=== PATIENT | male | born 1970 | race Hispanic/Latino ===

== ENCOUNTER 2016-10-31 03:31 | Emergency (ER) | payer OTHER ==
[2016-10-31 03:39] VITALS: BMI 25.7
--- NOTE | 2016-10-31 04:44 | ED PDOC ---
Arrival/HPI - General Chief Complaint: Alcohol Ingestion Time Seen by Provider: 10/31/16 04:41 Historian: Patient - History of Present Illness Narrative History of Present Illness (Text): 10/31/16 04:41 Diana Koenig is a 46 year old male who presents to the emergency department via EMS for public intoxication. Patient admits to drinking alcohol throughout the day. Denies any somatic or psychological complaints. ROS limited due to intoxication. Symptom Onset: Gradual Severity Level: Mild Context: Street Past Medical History - Provider Review Nursing Documentation Reviewed: Yes - Tetanus Immunization Tetanus Immunization: Unknown - Past Medical History Past Medical History: No Previous - Cardiac Hx Cardiac Disorders: No Hx Hypertension: No - Pulmonary Hx Respiratory Disorders: Yes Hx Asthma: Yes - Neurological Hx Neurological Disorder: No HX Cerebrovascular Accident: No Hx Seizures: No - HEENT Hx HEENT Disorder: No - Renal Hx Renal Disorder: No - Endocrine/Metabolic Hx Endocrine Disorders: No - Hematological/Oncological Hx Blood Disorders: Yes Hx Cancer: No Hx Hepatitis C: Yes - Integumentary Hx Dermatological Disorder: No - Musculoskeletal/Rheumatological Hx Musculoskeletal Disorders: No - Gastrointestinal Hx Gastrointestinal Disorders: No - Genitourinary/Gynecological Hx Genitourinary Disorders: No Hx Sexually Transmitted Diseases: No - Psychiatric Hx Psychophysiologic Disorder: No Hx Substance Use: Yes (heroin) - Past Surgical History Past Surgical History: No Previous - Anesthesia Hx Anesthesia: No - Suicidal Assessment Feels Threatened In Home Enviroment: No Family/Social History - Physician Review Nursing Documentation Reviewed: Yes Family/Social History: No Known Family HX Smoking Status: Heavy Smoker > 10 Cigarettes Daily Hx Alcohol Use: Yes Hx Substance Use: Yes (heroin) Hx Substance Use Treatment: No Allergies/Home Meds Allergies/Adverse Reactions: Allergies No Known Allergies Allergy (Verified 01/31/16 16:14) Review of Systems - Review of Systems Systems not reviewed;Unavailable: Intoxicated Physical Exam - Physical Exam Narrative Physical Exam (Text): Constitutional: No acute distress. Intoxicated Head: Normocephalic. Atraumatic. Eyes: PERRL. ENT: Moist mucous membranes. Neck: Supple. Cardiovascular: Regular rate. Chest: No tenderness. Respiratory: Clear to auscultation bilaterally. GI: Soft. Nontender. Nondistended. Back: No CVA tenderness. Musculoskeletal: No tenderness or swelling of extremities. Skin: No rash. Neurologic: Alert, no focal deficit. Vital Signs Reviewed: Yes Vital Signs Temp Pulse Resp BP Pulse Ox 10/31/16 05:48 98.1 F 65 16 146/86 97 Temperature: Afebrile Blood Pressure: Normal Pulse: Regular Respiratory Rate: Normal Appearance: Positive for: Well-Appearing Pain Distress: None Mental Status: Positive for: other (Alert ) Medical Decision Making ED Course and Treatment: 10/31/16 04:44 Impression: A 46 year old male who presents to the emergency department via EMS for public intoxication. Plan: -- Reassess and disposition Progress Notes: 10/31/16 05:59 Patient with steady gait. - Scribe Statement The provider has reviewed the documentation as recorded by the Nena Lopez Provider Attestation: All medical record entries made by the Nena were at my direction and personally dictated by me. I have reviewed the chart and agree that the record accurately reflects my personal performance of the history, physical exam, medical decision making, and the department course for this patient. I have also personally directed, reviewed, and agree with the discharge instructions and disposition. Disposition/Present on Arrival - Present on Arrival Any Indicators Present on Arrival: No History of DVT/PE: No History of Uncontrolled Diabetes: No Urinary Catheter: No History of Decub. Ulcer: No History Surgical Site Infection Following: None - Disposition Have Diagnosis and Disposition been Completed?: Yes Diagnosis: Alcohol intoxication Disposition: HOME/ ROUTINE Disposition Time: 05:59 Patient Plan: Discharge Condition: STABLE Discharge Instructions (ExitCare): Alcohol Intoxication (ED)
[2016-10-31 05:50] VITALS: BP 146/86; PULSE 65; RESP 16; TEMP 98.1; O2SAT 97
== END 2016-10-31 06:04 | disposition home or self-care (01) ==
LOC: ED 03:31
DX: F10.129 Alcohol abuse with intoxication, unspecified (principal)

== ENCOUNTER 2017-01-01 03:11 | Inpatient (IN) | payer OTHER ==
[2017-01-01] MEDS ORDERED: Albuterol-Ipratrop 3 mg / 0.5 (3 ml) UD IH STA ×2 (03:34→04:24)
--- NOTE | 2017-01-01 03:38 | ED PDOC ---
Arrival/HPI - General Chief Complaint: Shortness Of Breath Time Seen by Provider: 01/01/17 03:27 Historian: Patient - History of Present Illness Narrative History of Present Illness (Text): 01/01/17 03:32 Diana Koenig is a 46 year old male, whose past medical history includes asthma, presents to the Emergency department complaining of shortness of breath. Patient states he ran out of his nebulizer treatments. Patient also notes he has been feeling dizzy and diaphoretic tonight. He reports a history of tobacco use and heroin use. Patient denies any chest pain, shortness of breath, headache, fever, chills, cough, nausea, vomiting, diarrhea, abdominal pain, or any other complaints. Time/Duration: Other (tonight) Symptom Onset: Gradual Symptom Course: Unchanged Modifying Factors (Text): None Associated Symptoms (Text): None Past Medical History - Provider Review Nursing Documentation Reviewed: Yes - Tetanus Immunization Tetanus Immunization: Unknown - Past Medical History Past Medical History: No Previous - Cardiac Hx Cardiac Disorders: No Hx Hypertension: No - Pulmonary Hx Respiratory Disorders: Yes Hx Asthma: Yes - Neurological Hx Neurological Disorder: No HX Cerebrovascular Accident: No Hx Seizures: No - HEENT Hx HEENT Disorder: No - Renal Hx Renal Disorder: No - Endocrine/Metabolic Hx Endocrine Disorders: No - Hematological/Oncological Hx Blood Disorders: Yes Hx Cancer: No Hx Hepatitis C: Yes - Integumentary Hx Dermatological Disorder: No - Musculoskeletal/Rheumatological Hx Musculoskeletal Disorders: No - Gastrointestinal Hx Gastrointestinal Disorders: No - Genitourinary/Gynecological Hx Genitourinary Disorders: No Hx Sexually Transmitted Diseases: No - Psychiatric Hx Psychophysiologic Disorder: No Hx Substance Use: Yes (heroin) - Past Surgical History Past Surgical History: No Previous - Anesthesia Hx Anesthesia: No - Suicidal Assessment Feels Threatened In Home Enviroment: No Family/Social History - Physician Review Nursing Documentation Reviewed: Yes Family/Social History: Unknown Family HX Smoking Status: Heavy Smoker > 10 Cigarettes Daily Hx Alcohol Use: Yes Frequency of alcohol use: Daily Hx Substance Use: Yes (heroin) Hx Substance Use Treatment: No Allergies/Home Meds Allergies/Adverse Reactions: Allergies No Known Allergies Allergy (Verified 01/01/17 12:08) Home Medications: Home Meds Medication Instructions Recorded Confirmed Albuterol HFA [Ventolin HFA 90 2 puff IH [id number] PRN 01/01/17 01/01/17 mcg/actuation (8 g)] Buprenorphine HCl/Naloxone HCl 2 - 8 mg SL BID 01/01/17 01/01/17 [Suboxone 8 mg-2 mg Sl Film] Mometasone [Asmanex Twisthaler 220 220 mcg IH BID 01/01/17 01/01/17 MCG] Review of Systems - Physician Review All systems were reviewed & negative as marked: Yes - Review of Systems Constitutional: Normal. absent: Fevers Eyes: Normal ENT: Normal. absent: Rhinorrhea Respiratory: SOB. absent: Cough Cardiovascular: Normal. absent: Chest Pain Gastrointestinal: Normal. absent: Diarrhea Genitourinary Male: Normal. absent: Frequency Musculoskeletal: Normal. absent: Neck Pain Skin: Normal Neurological: Dizziness. absent: Headache Endocrine: Diaphoresis Hemo/Lymphatic: Normal Psychiatric: Normal. absent: Depression Physical Exam Vital Signs Reviewed: Yes Vital Signs Temp Pulse Resp BP Pulse Ox 01/01/17 08:40 65 18 113/66 97 01/01/17 07:42 98.2 F 66 16 110/79 98 01/01/17 06:30 97.7 F 76 18 117/70 98 01/01/17 03:50 20 01/01/17 03:19 98.8 F 113 H 20 102/66 90 L Temperature: Afebrile Blood Pressure: Normal Pulse: Tachycardic Respiratory Rate: Normal Appearance: Positive for: Well-Appearing, Non-Toxic, Comfortable Pain Distress: None Mental Status: Positive for: Alert and Oriented X 3 - Systems Exam Head: Present: Atraumatic, Normocephalic Pupils: Present: PERRL Extroacular Muscles: Present: EOMI Conjunctiva: Present: Normal Mouth: Present: Moist Mucous Membranes Neck: Present: Normal Range of Motion Respiratory/Chest: Present: Wheezes (wheezing bilaterally) Cardiovascular: Present: Regular Rate and Rhythm, Normal S1, S2. No: Murmurs Abdomen: Present: Normal Bowel Sounds. No: Tenderness, Distention, Peritoneal Signs Upper Extremity: Present: Normal Inspection. No: Cyanosis, Edema Lower Extremity: Present: Normal Inspection. No: Edema Neurological: Present: GCS=15, CN II-XII Intact, Speech Normal Skin: Present: Warm, Dry, Normal Color. No: Rashes Psychiatric: Present: Alert, Oriented x 3, Normal Insight, Normal Concentration Medical Decision Making ED Course and Treatment: 01/01/17 03:32 Impression: 46 year old male with shortness of breath, dizziness, and diaphoresis. Plan: -- EKG -- Chest X-ray -- Labs, cardiac enzymes -- Urine drug screen -- Duoneb -- Solu-medrol -- Reassess and disposition Progress Notes: 01/01/17 04:48 EKG: Ordered, reviewed, and independently interpreted the EKG. Rate : 85 BPM Rhythm : NSR Interpretation : occasional PAC. Non-specific T wave changes. LAHB. 01/01/17 05:05 Reviewed radiology, Chest X-ray shows no acute processes. 01/01/17 05:49 Reviewed labs, troponin: 0.13. Case discussed with Dr. Solo, who is aware and agrees with plan. Accepts pt in to hospitalist service. Pt will be admitted to Telemetry for NSTEMI. - Lab Interpretations Lab Results: 01/01/17 04:58 01/01/17 04:58 Lab Results 01/01/17 04:58: PT 12.1 H, INR 1.12 H, APTT 30.0 01/01/17 04:58: WBC 12.7 H, RBC 4.40, Hgb 13.8 L, Hct 41.4 L, MCV 94.1, MCH 31.4 , MCHC 33.3, RDW 14.7 H, Plt Count 261, MPV 9.2 01/01/17 04:58: Sodium 128 L, Potassium 4.5, Chloride 92 L, Carbon Dioxide 28, Anion Gap 13, BUN 16, Creatinine 0.7, Est GFR ( Amer) > 60, Est GFR (Non- Af Amer) > 60, Random Glucose 119 H, Calcium 8.5, Total Bilirubin 1.3, AST 158 H , ALT 109 H, Alkaline Phosphatase 97, Lactate Dehydrogenase 654, Total Creatine Kinase 150, Troponin I 0.13 H*, Total Protein 6.9, Albumin 3.5, Globulin 3.3, Albumin/Globulin Ratio 1.1 I have reviewed the lab results: Yes - RAD Interpretation Radiology Orders: 01/01/17 04:24 CHEST PORTABLE [RAD] Stat - EKG Interpretation Interpreted by ED Physician: Yes Type: 12 lead EKG - Medication Orders Current Medication Orders: Arformoterol Tartrate (Brovana) 15 mcg IH [id number] [facility] Last Admin: 01/01/17 19:56 Dose: 15 mcg Aspirin (Ecotrin) 81 mg PO DAILY [facility] Atorvastatin Calcium (Lipitor) 20 mg PO DIN [facility] Last Admin: 01/01/17 17:51 Dose: 20 mg Budesonide (Pulmicort Respules) 0.5 mg IH [id number] [facility] Last Admin: 01/01/17 20:03 Dose: 0.5 mg Enoxaparin Sodium (Lovenox) 70 mg SC Q12H [facility] PRN Reason: Protocol Last Admin: 01/01/17 20:21 Dose: 70 mg Folic Acid (Folic Acid) 1 mg PO DAILY [facility] Last Admin: 01/01/17 11:22 Dose: 1 mg Levofloxacin/Dextrose (Levaquin 750mg) 750 mg in 150 mls @ 100 mls/hr IVPB DAILY [facility] Last Admin: 01/01/17 11:23 Dose: 100 mls/hr Multivitamins/Vitamin C 10 ml/Thiamine HCl 100 mg/ Folic Acid 1 mg/ Sodium Chloride 1,011.2 mls @ 100 mls/hr IV .Q10H7M [facility] Last Admin: 01/01/17 20:25 Dose: 100 mls/hr Labetalol HCl (Trandate) 100 mg PO BID [facility] Last Admin: 01/01/17 17:51 Dose: 100 mg Levalbuterol HCl (Xopenex) 0.63 mg IH [id number] PRN PRN Reason: Shortness of Breath Lorazepam (Ativan) 2 mg IVP Q2H PRN; Protocol PRN Reason: Agitation Last Admin: 01/01/17 20:18 Dose: 2 mg Methadone HCl (Methadone) 10 mg PO BID [facility] Last Admin: 01/01/17 17:52 Dose: 10 mg Multivitamins/Minerals (Therapeutic-M Tab) 1 tab PO DAILY [facility] Last Admin: 01/01/17 11:22 Dose: 1 tab Pantoprazole Sodium (Protonix Ec Tab) 40 mg PO DAILY [facility] Stop: 01/03/17 10:01 Last Admin: 01/01/17 11:22 Dose: 40 mg Thiamine HCl (Vitamin B1 Tab) 100 mg PO DAILY [facility] Last Admin: 01/01/17 11:22 Dose: 100 mg Discontinued Medications Albuterol/Ipratropium (Duoneb 3 Mg/0.5 Mg (3 Ml) Ud) 3 ml IH ONCE STA Stop: 01/01/17 03:35 Last Admin: 01/01/17 03:48 Dose: 3 ml Albuterol/Ipratropium (Duoneb 3 Mg/0.5 Mg (3 Ml) Ud) 3 ml IH ONCE STA Stop: 01/01/17 04:25 Last Admin: 01/01/17 04:32 Dose: 3 ml Aspirin (Aspirin Chewable) 81 mg PO STAT STA Stop: 01/01/17 09:12 Last Admin: 01/01/17 11:23 Dose: 81 mg Aspirin (Ecotrin) 81 mg PO Q4 PRN PRN Reason: PAIN RELIF Enoxaparin Sodium (Lovenox) 70 mg SC STAT STA PRN Reason: Protocol Stop: 01/01/17 05:51 Last Admin: 01/01/17 07:20 Dose: 70 mg Multivitamins/Vitamin C 10 ml/Thiamine HCl 100 mg/ Folic Acid 1 mg/ Sodium Chloride 1,011.2 mls @ 1,000 mls/hr IV .Q1H1M ONE Stop: 01/01/17 08:50 Last Admin: 01/01/17 08:39 Dose: 1,000 mls/hr Sodium Chloride (Sodium Chloride 0.9%) 1,000 mls @ 100 mls/hr IV .Q10H [facility] Last Admin: 01/01/17 11:25 Dose: 100 mls/hr Lorazepam (Ativan) 1 mg IVP Q3 PRN; Protocol PRN Reason: Agitation Last Admin: 01/01/17 07:55 Dose: 1 mg Methylprednisolone (Solu-Medrol) 125 mg IVP ONCE ONE Stop: 01/01/17 04:25 Last Admin: 01/01/17 05:02 Dose: 125 mg Pneumococcal Polyvalent Vaccine (Pneumovax 23 Vaccine) 0.5 ml IM .ONCE ONE Stop: 01/01/17 13:43 Fluticasone/Salmeterol (Advair Diskus 100/50) 1 puff IH Q12 [facility] - Scribe Statement The provider has reviewed the documentation as recorded by the Scribe 01/01/2017 [employer] training with Mari Rankin All medical record entries made by the Scribe were at my direction and personally dictated by me. I have reviewed the chart and agree that the record accurately reflects my personal performance of the history, physical exam, medical decision making, and the department course for this patient. I have also personally directed, reviewed, and agree with the discharge instructions and disposition. Disposition/Present on Arrival - Present on Arrival Any Indicators Present on Arrival: No History of DVT/PE: No History of Uncontrolled Diabetes: No Urinary Catheter: No History of Decub. Ulcer: No History Surgical Site Infection Following: None - Disposition Have Diagnosis and Disposition been Completed?: Yes Diagnosis: NSTEMI (non-ST elevated myocardial infarction), Dyspnea, Asthma Disposition: HOSPITALIZED Disposition Time: 05:55 Patient Plan: Admission Patient Problems: Current Active Problems Problem Status Onset Asthma Acute Dyspnea Acute NSTEMI (non-ST elevated myocardial infarction) Acute Condition: STABLE
[2017-01-01 05:09] LABS: HEMOGLOBIN 13.8 gm/dL (14.0-18.0); MEAN CELL VOLUME 94.1 fL (80.0-105.0); MEAN CORPUSCULAR HEMOGLOBIN 31.4 pg (25.0-35.0); MEAN CORPUSCULAR HGB CONC 33.3 g/dl (31.0-37.0); MEAN PLATELET VOLUME 9.2 fl (7.0-11.0); RBC 4.4 10^6/uL (3.5-6.1); RED CELL DISTRIBUTION WIDTH 14.7 % (11.5-14.5); WHITE BLOOD COUNT 12.7 10^3/ul (4.5-11.0)
[2017-01-01 05:14] LABS: ALB/GLOB RATIO 1.1 (1.1-1.8); ALBUMIN 3.5 g/dL (3.0-4.8); ALT/SGPT 109 U/L (7-56); AST/SGOT 158 U/L (15-59); BLOOD UREA NITROGEN 16 mg/dL (7-21); CALCIUM 8.5 mg/dL (8.4-10.5); GFR AFRICAN-AMERICAN > 60; GFR NON-AFRICAN AMERICAN > 60
[2017-01-01 05:21] LABS: INR 1.12 (0.93-1.08); PROTHROMBIN TIME 12.1 Seconds (9.9-11.8)
[2017-01-01 05:44] LABS: TROPONIN I 0.13 ng/mL
[2017-01-01] MEDS ORDERED: Enoxaparin 80 mg Syringe SC STA (05:50)
--- NOTE | 2017-01-01 07:31 | RAD ---
HISTORY: sob COMPARISON: 05/19/2016 FINDINGS: LUNGS: No active pulmonary disease. PLEURA: No significant pleural effusion identified, no pneumothorax apparent. CARDIOVASCULAR: Normal. OSSEOUS STRUCTURES: No significant abnormalities. VISUALIZED UPPER ABDOMEN: Normal. OTHER FINDINGS: None. IMPRESSION: No active disease.
[2017-01-01 07:40] LABS: ALB/GLOB RATIO 1.1 (1.1-1.8); ALBUMIN 3.6 g/dL (3.0-4.8); ALT/SGPT 110 U/L (7-56); AST/SGOT 158 U/L (15-59); BLOOD UREA NITROGEN 15 mg/dL (7-21); CALCIUM 8.9 mg/dL (8.4-10.5); GFR AFRICAN-AMERICAN > 60; GFR NON-AFRICAN AMERICAN > 60
[2017-01-01] MEDS ORDERED: Multivitamin (MVI) 10 ML, Thiamine 100 MG, Folic Acid 1 MG in Sodium Chloride 0.9% 1,00... IV ONE (07:50)
[2017-01-01] MEDS ORDERED: Levalbuterol 0.63 MG/3 ML Inhal Soln UD IH PRN (09:11)
--- NOTE | 2017-01-01 09:35 | CP.PCM.HP ---
<AfshinFam - Last Filed: 01/01/17 09:30> History of Present Illness - History of Present Illness History of Present Illness: Mr. Ortiz is a 46 y/o male with PMHx of Asthma, Tobacco abuse, and Heroin use presented with c/o SOB and b/l LE swelling. Patient states that he has not used his nebulizer treatment in more than two weeks because he ran out, and has been getting progressively more SOB. Patient further states that when he does have his nebulizer, he uses it more than twice a day. Patient states that today he started feeling dizzy due to his SOB, and therefore decided to come to the ED. Patient also admits to dyspnea on exertion, but denies CP. Patient states that his b/l LE swelling has been going on for the past few days. He denies a hx of CHF. Finally, patient states that he had one episode of emesis yesterday morning. He denies fevers, chills, nausea, diarrhea, cp, confusion, loss of sensation, or any other symptoms PSHx: Patient denies PMHx: Asthma All: NKDA SocH: Heroin, Cocaine, Smoker, EtOH FamH: Non-contributory Meds: Nebulizer Present on Admission - Present on Admission Any Indicators Present on Admission: No Review of Systems - Review of Systems Review of Systems: Constitutional: pt denies fever, chills, generalized weakness ENT: +Sputum production past few days; pt denies dysphagia, ofalgia, hearing deficit, rhinorrhea Eyes: pt denies sudden loss of vision, diplopia, blurred vision MSK: pt denies muscle stiffness, joint pain, extremity cramping Cardio: pt denies sob, heart murmur; see hpi Pulm:+See HPI GI: pt denies loss of appetite, abdominal pain, constipation, melena, n/v/d : pt denies burning on urination, urinary frequency, hematuria, urinary urgency Neuro: pt denies paresis, paresthesia, dizziness, leggett, numbness, tingling Derm: pt denies skin changes, lesions, nail changes Endo: +Pt admits to b/l LE swelling; pt denies intolerance to heat/cold, diaphoresis, night sweats, polydipsia Psych: pt denies anxiety, depression, mood changes Past Patient History - Tetanus Immunizations Tetanus Immunization: Unknown - Past Social History Smoking Status: Heavy Smoker > 10 Cigarettes Daily - CARDIAC Hx Cardiac Disorders: No Hx Hypertension: No - PULMONARY Hx Respiratory Disorders: Yes Hx Asthma: Yes - NEUROLOGICAL Hx Neurological Disorder: No HX Cerebrovascular Accident: No Hx Seizures: No - HEENT Hx HEENT Problems: No - RENAL Hx Chronic Kidney Disease: No - ENDOCRINE/METABOLIC Hx Endocrine Disorders: No - HEMATOLOGICAL/ONCOLOGICAL Hx Blood Disorders: Yes Hx Cancer: No Hx Hepatitis C: Yes - INTEGUMENTARY Hx Dermatological Problems: No - MUSCULOSKELETAL/RHEUMATOLOGICAL Hx Musculoskeletal Disorders: No - GASTROINTESTINAL Hx Gastrointestinal Disorders: No - GENITOURINARY/GYNECOLOGICAL Hx Genitourinary Disorders: No Hx Sexually Transmitted Disorders: No - PSYCHIATRIC Hx Psychophysiologic Disorder: No Hx Substance Use: Yes (heroin) - SURGICAL HISTORY Hx Surgeries: No - ANESTHESIA Hx Anesthesia: No Meds Allergies/Adverse Reactions: Allergies Allergy/AdvReac Type Severity Reaction Status Date / Time No Known Allergies Allergy Verified 01/01/17 12:08 Physical Exam - Additional Findings Additional findings: VS as below Constitutional: unkempt male, a&o x 4, nad Head and Neck: neck supple, no jvd, trachea midline, carotid midline, no cervical/head mass Eyes: ayo, nonicteric sclera, eom intact ENT: auditory acuity grossly intact, throat not congested, no nasal deformity Cardio: +venous insufficiencyrrr, no m/r/g, no carotid bruit, nml s1, s2 Pulm: +scattered RRW b/l; no accessory muscle use, equal nml breath sounds bilaterally Abd: s/nt/nd, nbs x 4 q, no palpable masses Derm: no rashes, no ulcers, no lesions Extr: +edema in b/l LE, no cyanosis, no calf tenderness, no lesions, no varicosities Neuro: cn II-XII grossly intact, ue and le 3+ muscle strength bilaterally, no los ue, le bilaterally and core Results - Vital Signs Recent Vital Signs: Last Vital Signs Temp 98.2 F 01/01/17 07:42 Pulse 65 01/01/17 08:40 Resp 18 01/01/17 08:40 BP 113/66 01/01/17 08:40 Pulse Ox 97 01/01/17 08:40 - Labs Result Diagrams: 01/01/17 04:58 01/01/17 06:54 Labs: Laboratory Results - last 24 hr 01/01/17 01/01/17 06:54 06:54 Sodium 132 Potassium 4.7 Chloride 94 L Carbon Dioxide 30 Anion Gap 13 BUN 15 Creatinine 0.7 Est GFR ( Amer) > 60 Est GFR (Non-Af Amer) > 60 Random Glucose 174 H Calcium 8.9 Total Bilirubin 1.4 H AST 158 H ALT 110 H Alkaline Phosphatase 94 Total Protein 6.8 Albumin 3.6 Globulin 3.2 Albumin/Globulin Ratio 1.1 Alcohol, Quantitative < 10 Assessment & Plan - Assessment and Plan (Free Text) Assessment: Mr. Ortiz is a 46 y/o male with PMHx of Asthma, Tobacco abuse, and Heroin use presented with c/o SOB and b/l LE swelling Plan: 1.) NSTEMI - Cardio on c/s - ECHO - Tropes - O2 on 2L NC - Nitroglycerine sublingual prn - ASA stat - Labetalol - Lovenox 70 - EKG showed ST depression, indicative of ischemia, but no KASSI 2.) SOB 2/2 Asthma VS COPD - Xopenex (not duonebs, to prevent tachycardia) - Levoquin - Salumeterol - Procalcitonin levels - O2 on 2L NC 3.) Hypochloremic Hyponatremia - Na 128 - Fluid hydration 4.) DVT PPHXS - Pt on Lovenox, don't need further intervention 5.) GI PPHXS - Protonix D/W Dr. Germania Pepe, DO PGY-1 <Philip Solo Q - Last Filed: 01/02/17 03:14> Results - Vital Signs Recent Vital Signs: Last Vital Signs Temp 98.8 F 01/02/17 00:01 Pulse 62 01/02/17 02:00 Resp 20 01/02/17 00:01 BP 125/94 H 01/02/17 00:01 Pulse Ox 96 01/02/17 00:01 - Labs Result Diagrams: 01/01/17 04:58 01/01/17 06:54 Labs: Laboratory Results - last 24 hr 01/01/17 01/01/17 01/01/17 06:45 06:54 06:54 Sodium Potassium Chloride Carbon Dioxide Anion Gap BUN Creatinine Est GFR ( Amer) Est GFR (Non-Af Amer) Random Glucose Hemoglobin A1c 5.9 Calcium Phosphorus Magnesium Total Bilirubin AST ALT Alkaline Phosphatase Lactate Dehydrogenase Total Creatine Kinase Troponin I NT-Pro-B Natriuret Pep Total Protein Albumin Globulin Albumin/Globulin Ratio Triglycerides Cholesterol LDL Cholesterol Direct HDL Cholesterol Procalcitonin 1.11 H TSH 3rd Generation Alcohol, Quantitative < 10 Hepatitis A IgM Ab Hep Bs Antigen Hep B Core IgM Ab Hepatitis C Antibody 01/01/17 01/01/17 01/01/17 06:54 06:54 10:00 Sodium 132 Potassium 4.7 Chloride 94 L Carbon Dioxide 30 Anion Gap 13 BUN 15 Creatinine 0.7 Est GFR ( Amer) > 60 Est GFR (Non-Af Amer) > 60 Random Glucose 174 H Hemoglobin A1c Calcium 8.9 Phosphorus Magnesium Total Bilirubin 1.4 H AST 158 H ALT 110 H Alkaline Phosphatase 94 Lactate Dehydrogenase Total Creatine Kinase 140 Troponin I 0.12 NT-Pro-B Natriuret Pep Total Protein 6.8 Albumin 3.6 Globulin 3.2 Albumin/Globulin Ratio 1.1 Triglycerides Cholesterol LDL Cholesterol Direct HDL Cholesterol Procalcitonin TSH 3rd Generation 0.09 L Alcohol, Quantitative Hepatitis A IgM Ab Hep Bs Antigen Hep B Core IgM Ab Hepatitis C Antibody 01/01/17 01/01/17 12:05 13:50 Sodium Potassium Chloride Carbon Dioxide Anion Gap BUN Creatinine Est GFR ( Amer) Est GFR (Non-Af Amer) Random Glucose Hemoglobin A1c Calcium Phosphorus 2.9 Magnesium 1.9 Total Bilirubin AST ALT Alkaline Phosphatase Lactate Dehydrogenase 513 Total Creatine Kinase 86 Troponin I 0.05 D NT-Pro-B Natriuret Pep 3730 H Total Protein Albumin Globulin Albumin/Globulin Ratio Triglycerides 53 Cholesterol 120 L LDL Cholesterol Direct 68 HDL Cholesterol 42 Procalcitonin TSH 3rd Generation Alcohol, Quantitative Hepatitis A IgM Ab Negative Hep Bs Antigen Negative Hep B Core IgM Ab Negative Hepatitis C Antibody Reactive H Attending/Attestation - Attestation I have personally seen and examined this patient.: Yes I have fully participated in the care of the patient.: Yes I have reviewed all pertinent clinical information: Yes
--- NOTE | 2017-01-01 09:42 | US ---
HISTORY: Leg pain and swelling. Evaluate for DVT PHYSICIAN(S): Prince Lira MD. TECHNIQUE: Duplex sonography and color-flow Doppler with graded compression were used to evaluate the deep venous systems of both lower extremities. FINDINGS: The visualized deep venous systems of both lower extremities are sonographically normal and compressible. Normal wave forms and augmentation are seen. There is no sonographic evidence for deep venous thrombosis in the visualized segments of both lower extremities. IMPRESSION: No sonographic evidence for deep venous thrombosis in the visualized segments of both lower extremities.
[2017-01-01] MEDS ORDERED: Sodium Chloride 0.9% 1,000 ML IV SCH (09:45)
[2017-01-01] MEDS ORDERED: Fluticasone-Salmeterol 100-50mcg Diskus IH SCH (10:00)
[2017-01-01] MEDS ORDERED: Multivitamin With Minerals Tab PO SCH (10:00)
--- NOTE | 2017-01-01 10:49 | CARD ---
APPROVED REPORT EKG Measurement Heart [id number] [id number] <Conclusion> Sinus rhythm with premature supraventricular complexes Possible Left atrial enlargement Pulmonary disease pattern RSR' or QR pattern in V1 suggests right ventricular conduction delay Left anterior fascicular block T wave abnormality, consider anterior ischemia Abnormal ECG
[2017-01-01] MEDS: Enoxaparin 80 mg Syringe SC SCH ×2 (10:55→20:21)
[2017-01-01] MEDS: Multivitamin (MVI) 10 ML, Thiamine 100 MG, Folic Acid 1 MG in Sodium Chloride 0.9% 1,00... IV SCH ×2 (10:56→20:25)
[2017-01-01] MEDS: Pantoprazole 40 mg EC Tab PO SCH (11:22)
[2017-01-01] MEDS: levoFLOXacin 750 mg in D5W 750 MG/150 ML BAG IVPB SCH (11:23)
[2017-01-01 11:29] LABS: TROPONIN I 0.12 ng/mL
--- NOTE | 2017-01-01 12:34 | CT ---
PROCEDURE: CT HEAD WITHOUT CONTRAST. HISTORY: AMS COMPARISON: 06/17/2014 TECHNIQUE: Axial computed tomography images were obtained through the head/brain without intravenous contrast. Radiation dose: Total exam DLP = 722 mGy-cm. This CT exam was performed using one or more of the following dose reduction techniques: Automated exposure control, adjustment of the mA and/or kV according to patient size, and/or use of iterative reconstruction technique. FINDINGS: HEMORRHAGE: No intracranial hemorrhage. BRAIN: No mass effect or edema. No atrophy or chronic microvascular ischemic changes. VENTRICLES: Unremarkable. No hydrocephalus. CALVARIUM: Unremarkable. PARANASAL SINUSES: Unremarkable as visualized. No significant inflammatory changes. MASTOID AIR CELLS: Unremarkable as visualized. No inflammatory changes. OTHER FINDINGS: None. IMPRESSION: No acute finding
[2017-01-01] MEDS ORDERED: Pneumococcal 23-Valent Vaccine IM ONE (13:42)
[2017-01-01 13:43] VITALS: BMI 22.9
[2017-01-01 14:08] LABS: MAGNESIUM 1.9 mg/dL (1.7-2.2)
[2017-01-01 14:21] LABS: TROPONIN I 0.05 ng/mL
[2017-01-01 17:32] LABS: HEPATITIS B SURFACE AG NEGATIVE (NEGATIVE)
[2017-01-01 17:46] LABS: HEPATITIS A IGM NEGATIVE (NEGATIVE); HEPATITIS B CORE AB NEGATIVE (NEGATIVE)
[2017-01-01 19:29] LABS: HEPATITIS C ANTIBODY REACTIVE (NEGATIVE)
[2017-01-01] MEDS: Arformoterol 15 mcg/2 ml Inh Sol IH SCH (19:56)
[2017-01-01] MEDS: Budesonide 0.5 mg/2 ml Inhal Susp UD IH SCH (20:03)
--- NOTE | 2017-01-01 22:43 | CARD ---
APPROVED REPORT EXAM: Two-dimensional and M-mode echocardiogram with Doppler and color Doppler. INDICATION Non STEMI 2D DIMENSIONS Left Atrium (2D)2.9 (1.6-4.0cm)IVSd1.2 (0.7-1.1cm) Aortic Root (2D)3.3 (2.0-3.7cm)LVDd5.4 (3.9-5.9cm) PWd0.9 (0.7-1.1cm)LVDs3.4 (2.5-4.0cm) FS (%) 36.4 %LVEF (%)52.0 (>50%) M-Mode DIMENSIONS Aortic Root2.10 (2.2-3.7cm)Aortic Cusp Exc.2.00 (1.5-2.0cm) Aortic Valve AoV Peak Nsebmqws337.0cm/Ivanna Peak GR.6mmHg Mitral Valve MV E Ltxmzvaw63.7cm/sMV A Kbkktepk89.3cm/sE/A ratio0.9 TDI Lateral E' Peak V6.92cm/sMedial E' Peak V6.24cm/sE/Lateral E'10.8 E/Medial E'12.0 Pulmonary Valve PV Peak Afdqaxqt34.9cm/sPV Peak Grad.3mmHg Tricuspid Valve TR Peak Dtnmbxqs781xe/sRAP FAEAEVXX3jkStDN Peak Gr.18mmHg [id number] LEFT VENTRICLE The left ventricle is normal size. There is normal left ventricular wall thickness. The left ventricular function is normal. The left ventricular ejection fraction is within the normal range. There is normal LV segmental wall motion. Transmitral Doppler flow pattern is Grade I-abnormal relaxation pattern. RIGHT VENTRICLE The right ventricle is normal size. There is normal right ventricular wall thickness. The right ventricular systolic function is normal. ATRIA The left atrium size is normal. The right atrium size is normal. AORTIC VALVE The aortic valve is mildly to moderately thickened. MITRAL VALVE The mitral valve is moderately thickened. TRICUSPID VALVE There is mild tricuspid regurgitation. GREAT VESSELS The aortic root is normal in size. The IVC collapses <50% with inspiration. The IVC is dilated. <Conclusion> The left ventricle is normal size. There is normal left ventricular wall thickness. The left ventricular function is normal. The left ventricular ejection fraction is within the normal range. There is normal LV segmental wall motion. Transmitral Doppler flow pattern is Grade I-abnormal relaxation pattern. The aortic valve is mildly to moderately thickened. The mitral valve is moderately thickened. There is mild tricuspid regurgitation.
[2017-01-02] MEDS: Multivitamin (MVI) 10 ML, Thiamine 100 MG, Folic Acid 1 MG in Sodium Chloride 0.9% 1,00... IV SCH (06:58)
[2017-01-02 07:03] VITALS: O2SAT 100
[2017-01-02] MEDS: Budesonide 0.5 mg/2 ml Inhal Susp UD IH SCH ×2 (07:58→20:14)
[2017-01-02] MEDS: Arformoterol 15 mcg/2 ml Inh Sol IH SCH ×2 (07:58→20:14)
[2017-01-02 08:04] LABS: FREE T4 0.83 ng/dL (0.78-2.19)
[2017-01-02 08:13] LABS: URINE APPEARANCE CLEAR (CLEAR); URINE BILIRUBIN NEGATIVE (NEGATIVE); URINE BLOOD NEGATIVE (NEGATIVE); URINE COLOR YELLOW (YELLOW); URINE GLUCOSE (UA) NEGATIVE (NEGATIVE); URINE LEUKOCYTE ESTERASE NEGATIVE Leu/uL (NEGATIVE); URINE NITRATE NEGATIVE (NEGATIVE); URINE PROTEIN NEGATIVE mg/dL (<30 mg/dL); URINE UROBILINOGEN 0.2 E.U./dL (<1 E.U./dL)
[2017-01-02 08:17] LABS: T3 0.93 ng/mL (0.97-1.69)
[2017-01-02 08:43] LABS: BARBITURATES, UR NEGATIVE (NEGATIVE); BENZODIAZEPINES, UR NEGATIVE (NEGATIVE); OPIATES, UR POSITIVE (NEGATIVE); PHENCYCLIDINE, UR NEGATIVE (NEGATIVE)
[2017-01-02] MEDS ORDERED: Albuterol-Ipratrop 3 mg / 0.5 (3 ml) UD IH PRN (10:03)
[2017-01-02 10:07] LABS: BASO # 0.01 K/mm3 (0.0-2.0); BASO % 0.1 % (0.0-3.0); EOS % 0.4 % (1.5-5.0); GRAN # 6.42 (1.4-6.5); GRAN % 77.5 % (50.0-68.0); HEMOGLOBIN 13.5 gm/dL (14.0-18.0); LYMPH # 1.1 (1.2-3.4); LYMPH % 12.8 % (22.0-35.0); MEAN CELL VOLUME 93.6 fL (80.0-105.0); MEAN CORPUSCULAR HEMOGLOBIN 30.8 pg (25.0-35.0); MEAN CORPUSCULAR HGB CONC 32.9 g/dl (31.0-37.0); MEAN PLATELET VOLUME 9.3 fl (7.0-11.0); MONO # 0.8 (0.1-0.6); MONO % 9.2 % (1.0-6.0); PLATELET COUNT 258 10^3/uL (120.0-450.0); RBC 4.38 10^6/uL (3.5-6.1); RED CELL DISTRIBUTION WIDTH 14.9 % (11.5-14.5); WHITE BLOOD COUNT 8.3 10^3/ul (4.5-11.0)
[2017-01-02 10:16] LABS: ALBUMIN 3.1 g/dL (3.0-4.8); ALT/SGPT 146 U/L (7-56); AST/SGOT 202 U/L (15-59); BLOOD UREA NITROGEN 12 mg/dL (7-21); CALCIUM 8.4 mg/dL (8.4-10.5); GFR AFRICAN-AMERICAN > 60; GFR NON-AFRICAN AMERICAN > 60
[2017-01-02] MEDS: levoFLOXacin 750 mg in D5W 750 MG/150 ML BAG IVPB SCH (10:47)
[2017-01-02] MEDS: Pantoprazole 40 mg EC Tab PO SCH (10:48)
[2017-01-02] MEDS: Enoxaparin 80 mg Syringe SC SCH (10:52)
[2017-01-02] MEDS ORDERED: MethylPREDNISolone 40 mg Vial IVP SCH (13:00)
--- NOTE | 2017-01-02 14:41 | CP.PCM.PN ---
Subjective - Date & Time of Evaluation Date of Evaluation: 01/02/17 Time of Evaluation: 10:05 Objective - Vital Signs/Intake and Output Vital Signs (last 24 hours): Temp Pulse Resp BP Pulse Ox 98.3 F 57 L 16 157/105 H 100 01/02/17 12:00 01/02/17 12:00 01/02/17 12:00 01/02/17 12:00 01/02/17 06:00 Intake and Output: 01/02/17 01/02/17 06:59 18:59 Intake Total 1620 Output Total 1100 Balance 520 - Medications Medications: Current Medications Albuterol/Ipratropium (Duoneb 3 Mg/0.5 Mg (3 Ml) Ud) 3 ml IH Q2H PRN PRN Reason: Shortness of Breath Arformoterol Tartrate (Brovana) 15 mcg IH [id number] [facility] Last Admin: 01/02/17 07:58 Dose: 15 mcg Aspirin (Ecotrin) 81 mg PO DAILY [facility] Last Admin: 01/02/17 10:46 Dose: 81 mg Atorvastatin Calcium (Lipitor) 20 mg PO DIN [facility] Last Admin: 01/01/17 17:51 Dose: 20 mg Budesonide (Pulmicort Respules) 0.5 mg IH [id number] [facility] Last Admin: 01/02/17 07:58 Dose: 0.5 mg Enoxaparin Sodium (Lovenox) 70 mg SC Q12H [facility] PRN Reason: Protocol Last Admin: 01/02/17 10:52 Dose: 70 mg Levofloxacin/Dextrose (Levaquin 750mg) 750 mg in 150 mls @ 100 mls/hr IVPB DAILY [facility] Last Admin: 01/02/17 10:47 Dose: 100 mls/hr Multivitamins/Vitamin C 10 ml/Thiamine HCl 100 mg/ Folic Acid 1 mg/ Sodium Chloride 1,011.2 mls @ 100 mls/hr IV .Q10H7M [facility] Last Admin: 01/02/17 06:58 Dose: Not Given Labetalol HCl (Trandate) 100 mg PO BID [facility] Last Admin: 01/02/17 10:49 Dose: 100 mg Levalbuterol HCl (Xopenex) 0.63 mg IH [id number] PRN PRN Reason: Shortness of Breath Last Admin: 01/02/17 04:15 Dose: 0.63 mg Lorazepam (Ativan) 2 mg IVP Q2H PRN; Protocol PRN Reason: Agitation Last Admin: 01/01/17 20:18 Dose: 2 mg Methadone HCl (Methadone) 10 mg PO BID [facility] Last Admin: 01/02/17 10:47 Dose: 10 mg Methylprednisolone (Solu-Medrol) 30 mg IVP Q12 [facility] Nicotine (Nicoderm Cq) 1 patch TD DAILY [facility] Last Admin: 01/02/17 10:52 Dose: 1 patch Pantoprazole Sodium (Protonix Ec Tab) 40 mg PO DAILY [facility] Stop: 01/03/17 10:01 Last Admin: 01/02/17 10:48 Dose: 40 mg - Labs Labs: 01/02/17 10:04 01/02/17 10:04 PT 12.1 Seconds (9.9-11.8) H 01/01/17 04:58 INR 1.12 (0.93-1.08) H 01/01/17 04:58 APTT 30.0 Seconds (23.7-30.8) 01/01/17 04:58
[2017-01-02] MEDS ORDERED: Vancomycin 1gm in NS 250ml 1 GM/250 ML BAG IVPB SCH (15:15)
--- NOTE | 2017-01-02 15:21 | CP.PCM.PN ---
<HANNAH BAIG - Last Filed: 01/02/17 15:17> Subjective - Date & Time of Evaluation Date of Evaluation: 01/02/17 Time of Evaluation: 10:00 - Subjective Subjective: Medicine Progress Note: Pt seen and evaluated at bedside. Pt states that he felt like he was withdrawing last night. Pt states that he had some chills, nausea, abdominal discomfort, and felt lethargic. Pt denied CP, SOB, v/f. Objective - Vital Signs/Intake and Output Vital Signs (last 24 hours): Temp Pulse Resp BP Pulse Ox 98.3 F 57 L 16 157/105 H 100 01/02/17 12:00 01/02/17 12:00 01/02/17 12:00 01/02/17 12:00 01/02/17 06:00 Intake and Output: 01/02/17 01/02/17 06:59 18:59 Intake Total 1620 Output Total 1100 Balance 520 - Medications Medications: Current Medications Albuterol/Ipratropium (Duoneb 3 Mg/0.5 Mg (3 Ml) Ud) 3 ml IH Q2H PRN PRN Reason: Shortness of Breath Arformoterol Tartrate (Brovana) 15 mcg IH [id number] [facility] Last Admin: 01/02/17 07:58 Dose: 15 mcg Aspirin (Ecotrin) 81 mg PO DAILY [facility] Last Admin: 01/02/17 10:46 Dose: 81 mg Atorvastatin Calcium (Lipitor) 20 mg PO DIN [facility] Last Admin: 01/01/17 17:51 Dose: 20 mg Budesonide (Pulmicort Respules) 0.5 mg IH [id number] [facility] Last Admin: 01/02/17 07:58 Dose: 0.5 mg Enoxaparin Sodium (Lovenox) 70 mg SC Q12H [facility] PRN Reason: Protocol Last Admin: 01/02/17 10:52 Dose: 70 mg Levofloxacin/Dextrose (Levaquin 750mg) 750 mg in 150 mls @ 100 mls/hr IVPB DAILY [facility] Last Admin: 01/02/17 10:47 Dose: 100 mls/hr Multivitamins/Vitamin C 10 ml/Thiamine HCl 100 mg/ Folic Acid 1 mg/ Sodium Chloride 1,011.2 mls @ 100 mls/hr IV .Q10H7M [facility] Last Admin: 01/02/17 06:58 Dose: Not Given Vancomycin HCl (Vancomycin 1gm) 1 gm in 250 mls @ 167 mls/hr IVPB Q12H [facility] PRN Reason: Protocol Labetalol HCl (Trandate) 100 mg PO BID [facility] Last Admin: 01/02/17 10:49 Dose: 100 mg Levalbuterol HCl (Xopenex) 0.63 mg IH [id number] PRN PRN Reason: Shortness of Breath Last Admin: 01/02/17 04:15 Dose: 0.63 mg Lorazepam (Ativan) 2 mg IVP Q2H PRN; Protocol PRN Reason: Agitation Last Admin: 01/01/17 20:18 Dose: 2 mg Methadone HCl (Methadone) 10 mg PO BID [facility] Last Admin: 01/02/17 10:47 Dose: 10 mg Methylprednisolone (Solu-Medrol) 30 mg IVP Q12 [facility] Nicotine (Nicoderm Cq) 1 patch TD DAILY [facility] Last Admin: 01/02/17 10:52 Dose: 1 patch Pantoprazole Sodium (Protonix Ec Tab) 40 mg PO DAILY [facility] Stop: 01/03/17 10:01 Last Admin: 01/02/17 10:48 Dose: 40 mg - Labs Labs: 01/02/17 10:04 01/02/17 10:04 PT 12.1 Seconds (9.9-11.8) H 01/01/17 04:58 INR 1.12 (0.93-1.08) H 01/01/17 04:58 APTT 30.0 Seconds (23.7-30.8) 01/01/17 04:58 - Constitutional Appears: No Acute Distress - Head Exam Head Exam: ATRAUMATIC, NORMOCEPHALIC - Eye Exam Eye Exam: EOMI, PERRL - ENT Exam ENT Exam: Mucous Membranes Moist - Neck Exam Neck Exam: Full ROM - Respiratory Exam Respiratory Exam: Rales, Rhonchi. absent: Chest Wall Tenderness, Wheezes - Cardiovascular Exam Cardiovascular Exam: RRR, +S1, +S2. absent: Gallop, Rubs, Murmur - GI/Abdominal Exam GI & Abdominal Exam: Soft. absent: Distended, Guarding, Tenderness, Rebound - Extremities Exam Extremities Exam: Full ROM Additional comments: Multiple injection sites noted b/l antecubital - Neurological Exam Neurological Exam: Alert, Awake, Oriented x3 - Skin Skin Exam: Diaphoretic, Normal Color, Warm Assessment and Plan - Assessment and Plan (Free Text) Assessment: Mr. Ortiz is a 46 y/o male with PMHx of Asthma, Tobacco abuse, and Heroin use presented with c/o SOB and b/l LE swelling. Pt admitted for NSTEMI. 1. NSTEMI -Cardiology consulted -Positive troponins x2 -Echo showed normal EF with thickened aortic and mitral valves, tricuspid regurg -EKG showed ST depression, indicative of ischemia, but no KASSI -Head CT and CXR show no active disease -ASA, Lipitor 2. Heroin/Alcohol Abuse -[facility] protocol -Methadone 10 mg BID -Ativan 2 mg Q2H PRN -Ativan 2 mg Q4H standing -Banana bag, thiamine, folic acid, multivitamin -Counselled on tobacco cessation -US extremity showed no signs of DVT -F/u blood cultures; started on vancomycin 3. Asthma -Xopenex (not duonebs, to prevent tachycardia) -Levoquin -Salumeterol -Procalcitonin elevated -O2 on 2L NC 4. Probable Hyperthyroidism vs Sick Euthyroid Syndrome -Decreased TSH, T4, T3 -Endocrinology consulted 5. Nicotine abuse -Nicoderm patch -Counselled on tobacco cessation 6. DVT PPHXS -Pt on Lovenox, don't need further intervention 7. GI PPHXS -Protonix Pt seen and discussed in detail with Dr. Moreland. <Jonah Moreland - Last Filed: 01/02/17 17:46> Objective - Vital Signs/Intake and Output Vital Signs (last 24 hours): Temp Pulse Resp BP Pulse Ox 98.3 F 57 L 16 157/105 H 100 01/02/17 12:00 01/02/17 12:00 01/02/17 12:00 01/02/17 12:00 01/02/17 06:00 Intake and Output: 01/02/17 01/02/17 06:59 18:59 Intake Total 1620 480 Output Total 1100 400 Balance 520 80 - Medications Medications: Current Medications Albuterol/Ipratropium (Duoneb 3 Mg/0.5 Mg (3 Ml) Ud) 3 ml IH Q2H PRN PRN Reason: Shortness of Breath Arformoterol Tartrate (Brovana) 15 mcg IH [id number] [facility] Last Admin: 01/02/17 07:58 Dose: 15 mcg Aspirin (Ecotrin) 81 mg PO DAILY [facility] Last Admin: 01/02/17 10:46 Dose: 81 mg Atorvastatin Calcium (Lipitor) 20 mg PO DIN [facility] Last Admin: 01/01/17 17:51 Dose: 20 mg Budesonide (Pulmicort Respules) 0.5 mg IH [id number] [facility] Last Admin: 01/02/17 07:58 Dose: 0.5 mg Enoxaparin Sodium (Lovenox) 30 mg SC DAILY [facility] PRN Reason: Protocol Folic Acid (Folic Acid) 1 mg PO DAILY [facility] Levofloxacin/Dextrose (Levaquin 750mg) 750 mg in 150 mls @ 100 mls/hr IVPB DAILY [facility] Last Admin: 01/02/17 10:47 Dose: 100 mls/hr Multivitamins/Vitamin C 10 ml/Thiamine HCl 100 mg/ Folic Acid 1 mg/ Sodium Chloride 1,011.2 mls @ 100 mls/hr IV .Q10H7M [facility] Last Admin: 01/02/17 06:58 Dose: Not Given Vancomycin HCl (Vancomycin 1gm) 1 gm in 250 mls @ 167 mls/hr IVPB Q12H [facility] PRN Reason: Protocol Last Admin: 01/02/17 15:32 Dose: 167 mls/hr Labetalol HCl (Trandate) 100 mg PO BID [facility] Last Admin: 01/02/17 10:49 Dose: 100 mg Levalbuterol HCl (Xopenex) 0.63 mg IH [id number] PRN PRN Reason: Shortness of Breath Last Admin: 01/02/17 04:15 Dose: 0.63 mg Lorazepam (Ativan) 1 mg IVP Q2H PRN; Protocol PRN Reason: Agitation Methadone HCl (Methadone) 10 mg PO BID [facility] Last Admin: 01/02/17 10:47 Dose: 10 mg Methylprednisolone (Solu-Medrol) 30 mg IVP Q12 [facility] Last Admin: 01/02/17 15:31 Dose: 30 mg Multivitamins/Minerals (Therapeutic-M Tab) 1 tab PO 0800 [facility] Nicotine (Nicoderm Cq) 1 patch TD DAILY [facility] Last Admin: 01/02/17 10:52 Dose: 1 patch Pantoprazole Sodium (Protonix Ec Tab) 40 mg PO DAILY [facility] Stop: 01/03/17 10:01 Last Admin: 01/02/17 10:48 Dose: 40 mg Thiamine HCl (Vitamin B1 Tab) 100 mg PO DAILY [facility] - Labs Labs: 01/02/17 10:04 01/02/17 10:04 PT 12.1 Seconds (9.9-11.8) H 01/01/17 04:58 INR 1.12 (0.93-1.08) H 01/01/17 04:58 APTT 30.0 Seconds (23.7-30.8) 01/01/17 04:58 Attending/Attestation - Attestation I have personally seen and examined this patient.: Yes I have fully participated in the care of the patient.: Yes I have reviewed all pertinent clinical information, including history, physical exam and plan: Yes Notes (Text): 01/02/17 17:40 attending note; Patient seen and examined with resident. Patient is a 46 year-old male admitted with alcohol intoxication/IV heroine abuse/cocaine abuse. monitor for withdrawal symptoms. Continue IV banana bag. Continue IV ativan. Methadone for heroin withdrawal symptoms. history of hepatitis C: ELEVATED LFT. Multiple needle street in the arm. Elevated troponin; trending down. Echo showed thickened valves. Blood culture pending. Active smoking/bronchitis; continue DuoNeb treatment. With levofloxacin on NicoDerm ptch. wheezing; continue IV Solu-Medrol. Complete smoking/alcohol/drug abuse cessation is strongly advised. Patient is homeless. Social work evaluation appreciated. rehabilitation information/[facility] information given. Possible discharge home within 1 to 2 days if withdrawal symptoms improves. patient will follow-up with PMD of choice upon discharge. 01/02/17 17:45
--- NOTE | 2017-01-02 16:53 | CON ---
REASON FOR CONSULTATION: Shortness of breath. HISTORY OF PRESENT ILLNESS: The patient's history was obtained from the medical record. The patient at this time is slightly obtunded and does not communicate verbally with me in the echo department. The patient is a 46-year-old male who has history of bronchial asthma, history of drug abuse in the past including cocaine and previous admission last year. He presented because of shortness of breath as well as dizziness and diaphoresis. The patient denied chest pain to the emergency room team. SOCIAL HISTORY: The patient is smoker as well as former cocaine abuser. It is not possible for me to clarify if he did abuse cocaine at this time. MEDICATIONS: Ativan 1 mg intravenously every 3 hours p.r.n. for agitation, Brovana 15 mcg inhalation twice a day, aspirin 81 mg once a day, folic acid 1 mg once a day, Levaquin 750 mg intravenously daily, Lovenox 70 mg subcutaneous twice a day, multivitamin one tablet once a day, thiamine 100 mg once a daily, Xopenex inhaler every 6 hours p.r.n. PHYSICAL EXAMINATION GENERAL: The patient is a middle aged male who does not appear to be in acute distress. VITAL SIGNS: Blood pressure 115/66, heart rate is 64, temperature is 98.2, respirations 16. HEENT: Normocephalic. CHEST: Clear. HEART: Sounds are regular. ABDOMEN: Soft. EXTREMITIES: No edema. LABORATORY DATA: Hemoglobin and hematocrit 15.8 and 41.4, white count and platelet count are 12.7 and 261,000, INR is 1.1, PTT 30, SMA-7 is within normal limits except for glucose of 174 and chloride of 94. The first troponin 0.13, Liver enzymes are mildly elevated. EKG revealed sinus rhythm with APCs, left atrial enlargement, pulmonary disease pattern, left anterior fascicular block consider acute ischemia. ASSESSMENT: 1. Exacerbation of bronchial asthma. 2. Altered mental status, could be related to recent Ativan therapy. 3. Rule out drug abuse. 4. Borderline troponin elevation. CONDITIONS: Continue aspirin 81 mg once a day, therapeutic Lovenox at 70 mg twice a day, labetalol 100 mg twice a day, start Lipitor at 20 mg once a day. I will review the ectocardiac study, obtain urine for drug screen and head CT scan without contrast. Alvino Carreon MD [facility] # [id number]
--- NOTE | 2017-01-03 02:57 | PN ---
DATE: 01/02/2017 SUBJECTIVE: The patient denies chest pain. He is more awake compared to yesterday. He admits to active intravenous drug abuse and denies any history of endocarditis in the past. PHYSICAL EXAMINATION: VITAL SIGNS: Blood pressure 157/105, heart rate 67, temperature 98.3, respiration 16. HEENT: Normocephalic. CHEST: Clear. HEART: S1 and S2, regular. EXTREMITIES: Significant track street in both upper extremities. LABORATORY DATA: Hemoglobin and hematocrit 16.5 and 41.0, white count and platelet counts are within normal limit. Urine drug screen is positive for opiates and cocaine. His chemistries were within normal limit except for glucose 111 and anion gap of 8. Echo cardiac study revealed thickened mitral leaflets and aortic cusps. Normal ejection fraction. Head CT scan without concerns. No acute findings. ASSESSMENT: 1. Status post cocaine and opiates abuse. 2. Rule out bacterial endocarditis. 3. Mild pulmonary hypertension. RECOMMENDATIONS: Case was discussed with Dr. Moreland. Continue current medications including aspirin, Lipitor, multivitamin, *------* Solu-Medrol, and IV Levaquin. Change Lovenox to 40 mg subcutaneous once a day. Obtain two sets of blood cultures. Alvino Carreon MD
--- NOTE | 2017-01-03 05:15 | CP.PCM.PN ---
<MAURICIO SAMS - Last Filed: 01/03/17 05:08> Subjective - Date & Time of Evaluation Date of Evaluation: 01/02/17 Time of Evaluation: 20:45 - Subjective Subjective: 46 yo M in the hospital for NSTEMI and heroin/alcohol withdrawal, requesting to leave AMA. Nurse reports that he left the hospital and she had to go get him from outside, prior to calling us. He feels well and denies any anxiety, tremors , CP, VILLAR, nausea, vomiting, diarrhea, abdominal pain, SOB, F/C. Patient was AAOx3 and breathing comfortably on room air. He was informed of the risks of leaving AMA, including recurrent TN, withdrawal with DT and seizures, sepsis, and , as a complication of his medical problems, in contrast to the benefits of staying, including rehabilitation and monitoring and managing the symptoms of withdrawal. He verbalized understanding in the witness of his nurse Jj Duffy. This was discussed with attending Dr. Beckford. IV access line was removed, and patient left the hospital AMA. Objective - Vital Signs/Intake and Output Vital Signs (last 24 hours): Temp Pulse Resp BP Pulse Ox 97.3 F L 85 20 150/90 100 01/02/17 17:49 01/02/17 18:25 01/02/17 17:49 01/02/17 18:25 01/02/17 06:00 Intake and Output: 01/02/17 01/03/17 18:59 06:59 Intake Total 480 Output Total 400 Balance 80 - Labs Labs: 01/02/17 10:04 01/02/17 10:04 PT 12.1 Seconds (9.9-11.8) H 01/01/17 04:58 INR 1.12 (0.93-1.08) H 01/01/17 04:58 APTT 30.0 Seconds (23.7-30.8) 01/01/17 04:58 - Constitutional Appears: Well, Non-toxic, No Acute Distress Assessment and Plan - Assessment and Plan (Free Text) Assessment: 46 y/o male with PMHx of Asthma, Tobacco abuse, and Heroin use presented with c/ o SOB and b/l LE swelling. Pt admitted for NSTEMI and alcohol/heroin withdawal. Plan: Patient left AMA after discussing risks and benefits. Patient verbalized understanding. Discussed with attending Dr. Beckford. Witnessed by nurse Jj Duffy <Kaitlynn Beckford - Last Filed: 01/03/17 05:34> Objective - Vital Signs/Intake and Output Vital Signs (last 24 hours): Temp Pulse Resp BP Pulse Ox 97.3 F L 85 20 150/90 100 01/02/17 17:49 01/02/17 18:25 01/02/17 17:49 01/02/17 18:25 01/02/17 06:00 Intake and Output: 01/02/17 01/03/17 18:59 06:59 Intake Total 480 Output Total 400 Balance 80 - Labs Labs: 01/02/17 10:04 01/02/17 10:04 PT 12.1 Seconds (9.9-11.8) H 01/01/17 04:58 INR 1.12 (0.93-1.08) H 01/01/17 04:58 APTT 30.0 Seconds (23.7-30.8) 01/01/17 04:58 Attending/Attestation - Attestation I have personally seen and examined this patient.: No I have fully participated in the care of the patient.: Yes I have reviewed all pertinent clinical information, including history, physical exam and plan: Yes Notes (Text): 01/03/17 05:31 Patient signed out AMA. Discussed with medical clerical assistant. DISCHARGE DIAGNOSIS: Noncomplilant. Left against medical advice. NSTEMI. Heroine withdrawal. Alcohol withdrawal. Asthma. Borderline anemia. Tobacco dependence.
[2017-01-03] MEDS ORDERED: Pantoprazole 40 mg EC Tab PO SCH (06:00)
[2017-01-03] MEDS ORDERED: Multivitamin With Minerals Tab PO SCH (08:00)
[2017-01-03] MEDS ORDERED: Enoxaparin 30 mg Syringe SC SCH (10:00)
[2017-01-03 11:58] VITALS: BP 150/90; PULSE 85; RESP 20; TEMP 97.3
--- NOTE | 2017-01-03 23:27 | CP.PCM.DIS ---
<ABIDA CASTAÑEDA - Last Filed: 01/03/17 23:24> Provider - Provider Date of Admission: 01/01/17 05:51 Attending physician: Jonah Moreland MD Primary care physician: Dr. [place] Consults: Cardiology: Dr. Carreon Endocrinology: Dr. Metzger Time Spent in preparation of Discharge (in minutes): 59 Hospital Course - Lab Results Lab Results: Micro Results 01/02/17 15:30 Blood-Venous Blood Culture - Preliminary NO GROWTH AFTER 24 HOURS 01/02/17 15:00 Blood-Venous Blood Culture - Preliminary NO GROWTH AFTER 24 HOURS Most Recent Lab Values WBC 8.3 10^3/ul (4.5-11.0) D 01/02/17 10:04 RBC 4.38 10^6/uL (3.5-6.1) 01/02/17 10:04 Hgb 13.5 gm/dL (14.0-18.0) L 01/02/17 10:04 Hct 41.0 % (42.0-52.0) L 01/02/17 10:04 MCV 93.6 fL (80.0-105.0) 01/02/17 10:04 MCH 30.8 pg (25.0-35.0) 01/02/17 10:04 MCHC 32.9 g/dl (31.0-37.0) 01/02/17 10:04 RDW 14.9 % (11.5-14.5) H 01/02/17 10:04 Plt Count 258 10^3/uL (120.0-450.0) 01/02/17 10:04 MPV 9.3 fl (7.0-11.0) 01/02/17 10:04 Gran % 77.5 % (50.0-68.0) H 01/02/17 10:04 Lymph % (Auto) 12.8 % (22.0-35.0) L 01/02/17 10:04 [place] % (Auto) 9.2 % (1.0-6.0) H 01/02/17 10:04 Eos % (Auto) 0.4 % (1.5-5.0) L 01/02/17 10:04 Baso % (Auto) 0.1 % (0.0-3.0) 01/02/17 10:04 Gran # 6.42 (1.4-6.5) 01/02/17 10:04 Lymph # 1.1 (1.2-3.4) L 01/02/17 10:04 [place] # 0.8 (0.1-0.6) H 01/02/17 10:04 Eos # 0.0 (0.0-0.7) 01/02/17 10:04 Baso # 0.01 K/mm3 (0.0-2.0) 01/02/17 10:04 PT 12.1 Seconds (9.9-11.8) H 01/01/17 04:58 INR 1.12 (0.93-1.08) H 01/01/17 04:58 APTT 30.0 Seconds (23.7-30.8) 01/01/17 04:58 Sodium 132 mmol/L (132-148) 01/02/17 10:04 Potassium 4.2 mmol/L (3.6-5.0) 01/02/17 10:04 Chloride 101 mmol/L (98-107) 01/02/17 10:04 Carbon Dioxide 27 mmol/L (21-33) 01/02/17 10:04 Anion Gap 8 (10-20) L 01/02/17 10:04 BUN 12 mg/dL (7-21) 01/02/17 10:04 Creatinine 0.6 mg/dL (0.5-1.4) 01/02/17 10:04 Est GFR ( Amer) > 60 01/02/17 10:04 Est GFR (Non-Af Amer) > 60 01/02/17 10:04 Random Glucose 111 mg/dL (70-110) H 01/02/17 10:04 Hemoglobin A1c 5.9 % (4.2-6.5) 01/01/17 06:45 Calcium 8.4 mg/dL (8.4-10.5) 01/02/17 10:04 Phosphorus 2.9 mg/dL (2.5-4.5) 01/01/17 13:50 Magnesium 1.9 mg/dL (1.7-2.2) 01/01/17 13:50 Total Bilirubin 0.6 mg/dL (0.2-1.3) 01/02/17 10:04 AST 202 U/L (15-59) H 01/02/17 10:04 ALT 146 U/L (7-56) H 01/02/17 10:04 Alkaline Phosphatase 74 U/L (38-133) 01/02/17 10:04 Lactate Dehydrogenase 513 U/L (333-699) 01/01/17 13:50 Total Creatine Kinase 86 U/L (35-230) 01/01/17 13:50 Troponin I 0.05 ng/mL D 01/01/17 13:50 NT-Pro-B Natriuret Pep 3730 pg/mL (0-450) H 01/01/17 13:50 Total Protein 6.2 g/dL (5.8-8.3) 01/02/17 10:04 Albumin 3.1 g/dL (3.0-4.8) 01/02/17 10:04 Globulin 3.1 gm/dL 01/02/17 10:04 Albumin/Globulin Ratio 1.0 (1.1-1.8) L 01/02/17 10:04 Triglycerides 53 mg/dL (35-160) 01/01/17 13:50 Cholesterol 120 mg/dL (130-200) L 01/01/17 13:50 LDL Cholesterol Direct 68 mg/dL (0-129) 01/01/17 13:50 HDL Cholesterol 42 mg/dL (29-60) 01/01/17 13:50 Procalcitonin 0.80 NG/ML (0.19-0.49) H 01/02/17 15:30 Free T4 0.83 ng/dL (0.78-2.19) 01/02/17 07:00 Total T3 0.93 ng/mL (0.97-1.69) L 01/02/17 07:00 TSH 3rd Generation 0.37 mIU/mL (0.46-4.68) L 01/02/17 07:00 Urine Color Yellow (YELLOW) 01/02/17 04:00 Urine Appearance Clear (CLEAR) 01/02/17 04:00 Urine pH 6.0 (4.7-8.0) 01/02/17 04:00 Ur Specific [place] 1.020 (1.005-1.035) 01/02/17 04:00 Urine Protein Negative mg/dL (<30 mg/dL) 01/02/17 04:00 Urine Glucose (UA) Negative mg/dL (NEGATIVE) 01/02/17 04:00 Urine Ketones Negative mg/dL (NEGATIVE) 01/02/17 04:00 Urine Blood Negative (NEGATIVE) 01/02/17 04:00 Urine Nitrate Negative (NEGATIVE) 01/02/17 04:00 Urine Bilirubin Negative (NEGATIVE) 01/02/17 04:00 Urine Urobilinogen 0.2 E.U./dL (<1 E.U./dL) 01/02/17 04:00 Ur Leukocyte Esterase Negative [place]/uL (NEGATIVE) 01/02/17 04:00 Urine Opiates Screen Positive (NEGATIVE) H 01/02/17 04:00 Urine Methadone Screen Negative (NEGATIVE) 01/02/17 04:00 Ur Barbiturates Screen Negative (NEGATIVE) 01/02/17 04:00 Ur Phencyclidine Scrn Negative (NEGATIVE) 01/02/17 04:00 Ur Amphetamines Screen Negative (NEGATIVE) 01/02/17 04:00 U Benzodiazepines Scrn Negative (NEGATIVE) 01/02/17 04:00 U Oth Cocaine Metabols Positive (NEGATIVE) H 01/02/17 04:00 U Cannabinoids Screen Negative (NEGATIVE) 01/02/17 04:00 Alcohol, Quantitative < 10 mg/dL (0-10) 01/01/17 06:54 Hepatitis A IgM Ab Negative (NEGATIVE) 01/01/17 12:05 Hep Bs Antigen Negative (NEGATIVE) 01/01/17 12:05 Hep B Core IgM Ab Negative (NEGATIVE) 01/01/17 12:05 Hepatitis C Antibody Reactive (NEGATIVE) H 01/01/17 12:05 HIV 1&2 Ag/Ab, 4th Gen Nonreactive (Nonreactive) 01/01/17 12:05 - Hospital Course Hospital Course: 46 y/o male with PMHx of Asthma, Tobacco abuse, and Heroin use presented with c /o SOB and b/l LE swelling. It was discovered that the patient had an NSTEMI and she had two positive troponin readings. Cardiology was consulted. An ECHO was ordered and showed thickened aortic and mitral valves, with tricuspid regurgitation. An EKG showed signs of ischemia. A head CT and a chest Xray were read as negative. She was given ASA and lipitor. Given patients history of alcohol and heroin abuse, standard CIWA protocols and heroin withdrawal medication therapy were initiated. Patient was given methadone and ativan at the recommended doses and frequencies. An ultrasound of her upper extremities showed no signs of a DVT and she was started on lovenox for empiric DVT coverage. Patient was started on vancomycin empirically. Given patients low TSH and T3/T4 values, endocrinology was consulted. Patient was given appropriate medications for asthma treatment. At 2039 on 01/02 patient signed out against medical advice. Prior to this, she was explained the risks of foregoing recommended medical treatment and verbalized understanding of such risks, which include but are not limited to heart attack, sepsis, permanent disability, permanent disfigurement, stroke, brain damage and . Discharge Exam - Head Exam Head Exam: ATRAUMATIC, NORMAL INSPECTION - Eye Exam Eye Exam: EOMI, PERRL - ENT Exam ENT Exam: Mucous Membranes Moist - Neck Exam Neck exam: Full Rom - Respiratory Exam Respiratory Exam: absent: Chest Wall Tenderness, Wheezes - Cardiovascular Exam Cardiovascular Exam: RRR, +S1, +S2. absent: Rubs - GI/Abdominal Exam GI & Abdominal Exam: Soft. absent: Distended, Guarding, Rebound, Tenderness - Extremities Exam Extremities exam: full ROM Additional comments: no calf tenderness or pedal edema on exam - Neurological Exam Neurological exam: Alert, Oriented x3 - Skin Skin Exam: Diaphoretic, Normal Color, Warm Discharge Plan - Discharge Medications Prescriptions: Albuterol HFA [Ventolin HFA 90 mcg/actuation (8 g)] 1 puff IH [id number] PRN #1 PRN Reason: sob amLODIPine [Norvasc] 5 mg PO DAILY #30 tab Levofloxacin [Levaquin] 500 mg PO DAILY #5 tablet LORazepam [Ativan] 0.5 mg PO BID #6 tab Methylprednisolone [Medrol Dose Pack (21 tabs)] See Taper PO DAILY #21 mg Multivitamin [Daily Value] 1 each PO DAILY #30 tablet Nicotine 14 mg/24 hr [Nicoderm CQ] 1 patch TD DAILY #7 patch - Follow Up Plan Condition: STABLE Disposition: AGAINST MEDICAL ADVICE Additional Instructions: -Patient left AMA, all risks including recurrent VT, sepsis, withdrawal with DT and seizures, and were explained in detail. Patient verbalized understanding. -Take medications as prescribed -Stop illicit drug and alcohol use -Follow up with PMD within 2-3 days -Return to local ED if symptoms worse <Jonah Moreland - Last Filed: 01/04/17 13:12> Provider - Provider Date of Admission: 01/01/17 05:51 Attending physician: Jonah Moreland MD Hospital Course - Lab Results Lab Results: Micro Results 01/02/17 15:30 Blood-Venous Blood Culture - Preliminary NO GROWTH AFTER 24 HOURS 01/02/17 15:00 Blood-Venous Blood Culture - Preliminary NO GROWTH AFTER 24 HOURS Most Recent Lab Values WBC 8.3 10^3/ul (4.5-11.0) D 01/02/17 10:04 RBC 4.38 10^6/uL (3.5-6.1) 01/02/17 10:04 Hgb 13.5 gm/dL (14.0-18.0) L 01/02/17 10:04 Hct 41.0 % (42.0-52.0) L 01/02/17 10:04 MCV 93.6 fL (80.0-105.0) 01/02/17 10:04 MCH 30.8 pg (25.0-35.0) 01/02/17 10:04 MCHC 32.9 g/dl (31.0-37.0) 01/02/17 10:04 RDW 14.9 % (11.5-14.5) H 01/02/17 10:04 Plt Count 258 10^3/uL (120.0-450.0) 01/02/17 10:04 MPV 9.3 fl (7.0-11.0) 01/02/17 10:04 Gran % 77.5 % (50.0-68.0) H 01/02/17 10:04 Lymph % (Auto) 12.8 % (22.0-35.0) L 01/02/17 10:04 [place] % (Auto) 9.2 % (1.0-6.0) H 01/02/17 10:04 Eos % (Auto) 0.4 % (1.5-5.0) L 01/02/17 10:04 Baso % (Auto) 0.1 % (0.0-3.0) 01/02/17 10:04 Gran # 6.42 (1.4-6.5) 01/02/17 10:04 Lymph # 1.1 (1.2-3.4) L 01/02/17 10:04 [place] # 0.8 (0.1-0.6) H 01/02/17 10:04 Eos # 0.0 (0.0-0.7) 01/02/17 10:04 Baso # 0.01 K/mm3 (0.0-2.0) 01/02/17 10:04 PT 12.1 Seconds (9.9-11.8) H 01/01/17 04:58 INR 1.12 (0.93-1.08) H 01/01/17 04:58 APTT 30.0 Seconds (23.7-30.8) 01/01/17 04:58 Sodium 132 mmol/L (132-148) 01/02/17 10:04 Potassium 4.2 mmol/L (3.6-5.0) 01/02/17 10:04 Chloride 101 mmol/L (98-107) 01/02/17 10:04 Carbon Dioxide 27 mmol/L (21-33) 01/02/17 10:04 Anion Gap 8 (10-20) L 01/02/17 10:04 BUN 12 mg/dL (7-21) 01/02/17 10:04 Creatinine 0.6 mg/dL (0.5-1.4) 01/02/17 10:04 Est GFR ( Amer) > 60 01/02/17 10:04 Est GFR (Non-Af Amer) > 60 01/02/17 10:04 Random Glucose 111 mg/dL (70-110) H 01/02/17 10:04 Hemoglobin A1c 5.9 % (4.2-6.5) 01/01/17 06:45 Calcium 8.4 mg/dL (8.4-10.5) 01/02/17 10:04 Phosphorus 2.9 mg/dL (2.5-4.5) 01/01/17 13:50 Magnesium 1.9 mg/dL (1.7-2.2) 01/01/17 13:50 Total Bilirubin 0.6 mg/dL (0.2-1.3) 01/02/17 10:04 AST 202 U/L (15-59) H 01/02/17 10:04 ALT 146 U/L (7-56) H 01/02/17 10:04 Alkaline Phosphatase 74 U/L (38-133) 01/02/17 10:04 Lactate Dehydrogenase 513 U/L (333-699) 01/01/17 13:50 Total Creatine Kinase 86 U/L (35-230) 01/01/17 13:50 Troponin I 0.05 ng/mL D 01/01/17 13:50 NT-Pro-B Natriuret Pep 3730 pg/mL (0-450) H 01/01/17 13:50 Total Protein 6.2 g/dL (5.8-8.3) 01/02/17 10:04 Albumin 3.1 g/dL (3.0-4.8) 01/02/17 10:04 Globulin 3.1 gm/dL 01/02/17 10:04 Albumin/Globulin Ratio 1.0 (1.1-1.8) L 01/02/17 10:04 Triglycerides 53 mg/dL (35-160) 01/01/17 13:50 Cholesterol 120 mg/dL (130-200) L 01/01/17 13:50 LDL Cholesterol Direct 68 mg/dL (0-129) 01/01/17 13:50 HDL Cholesterol 42 mg/dL (29-60) 01/01/17 13:50 Procalcitonin 0.80 NG/ML (0.19-0.49) H 01/02/17 15:30 Free T4 0.83 ng/dL (0.78-2.19) 01/02/17 07:00 Total T3 0.93 ng/mL (0.97-1.69) L 01/02/17 07:00 TSH 3rd Generation 0.37 mIU/mL (0.46-4.68) L 01/02/17 07:00 Urine Color Yellow (YELLOW) 01/02/17 04:00 Urine Appearance Clear (CLEAR) 01/02/17 04:00 Urine pH 6.0 (4.7-8.0) 01/02/17 04:00 Ur Specific [place] 1.020 (1.005-1.035) 01/02/17 04:00 Urine Protein Negative mg/dL (<30 mg/dL) 01/02/17 04:00 Urine Glucose (UA) Negative mg/dL (NEGATIVE) 01/02/17 04:00 Urine Ketones Negative mg/dL (NEGATIVE) 01/02/17 04:00 Urine Blood Negative (NEGATIVE) 01/02/17 04:00 Urine Nitrate Negative (NEGATIVE) 01/02/17 04:00 Urine Bilirubin Negative (NEGATIVE) 01/02/17 04:00 Urine Urobilinogen 0.2 E.U./dL (<1 E.U./dL) 01/02/17 04:00 Ur Leukocyte Esterase Negative [place]/uL (NEGATIVE) 01/02/17 04:00 Urine Opiates Screen Positive (NEGATIVE) H 01/02/17 04:00 Urine Methadone Screen Negative (NEGATIVE) 01/02/17 04:00 Ur Barbiturates Screen Negative (NEGATIVE) 01/02/17 04:00 Ur Phencyclidine Scrn Negative (NEGATIVE) 01/02/17 04:00 Ur Amphetamines Screen Negative (NEGATIVE) 01/02/17 04:00 U Benzodiazepines Scrn Negative (NEGATIVE) 01/02/17 04:00 U Oth Cocaine Metabols Positive (NEGATIVE) H 01/02/17 04:00 U Cannabinoids Screen Negative (NEGATIVE) 01/02/17 04:00 Alcohol, Quantitative < 10 mg/dL (0-10) 01/01/17 06:54 Hepatitis A IgM Ab Negative (NEGATIVE) 01/01/17 12:05 Hep Bs Antigen Negative (NEGATIVE) 01/01/17 12:05 Hep B Core IgM Ab Negative (NEGATIVE) 01/01/17 12:05 Hepatitis C Antibody Reactive (NEGATIVE) H 01/01/17 12:05 HIV 1&2 Ag/Ab, 4th Gen Nonreactive (Nonreactive) 01/01/17 12:05 Attending/Attestation - Attestation I have personally seen and examined this patient.: Yes I have fully participated in the care of the patient.: Yes I have reviewed all pertinent clinical information, including history, physical exam and plan: Yes Notes (Text): 01/04/17 13:11 attending note; Patient was seen and examined with resident early this morning. Patient signed AGAINST MEDICAL ADVICE later that night. diagnosis; Alcohol abuse Heroine abuse Cocaine abuse
--- NOTE | 2017-01-07 08:34 | CON ---
ENDOCRINOLOGY CONSULTATION DATE: 01/02/2017 ROOM: 277, [facility] HISTORY OF PRESENT ILLNESS: This is a 46-year-old male who is *------*. The patient presents *------* polysubstance abuse *------* methadone therapy *------*. History of generalized anxiety and depression. FAMILY HISTORY: Positive for diabetes mellitus. SOCIAL HISTORY: Patient *------* alcoholism noted. PHYSICAL EXAMINATION GENERAL: *------*. VITAL SIGNS: Blood pressure *------*, temperature 99.8, *------*. HEENT: *------*. NECK: *------*. CARDIOPULMONARY: *------*. LUNGS: *------*. ABDOMEN: *------*. EXTREMITIES: *------*. LABORATORY DATA: BUN *------*. *------* free T4 of 0.83 with *------* of 0.93, and TSH of 0.37. ASSESSMENT: This is a 46-year-old male with acute exacerbation of *------*. PLAN: *------*. Carrie Metzger MD
== END 2017-01-02 21:05 | disposition left against medical advice (07) | DRG 122 ==
LOC: ED 03:11 → ERH 05:51 → 2RSO 09:11
PROVIDERS: ADMIT Internal Medicine; ATTEND Internal Medicine
DX: I21.4 Non-ST elevation (NSTEMI) myocardial infarction (principal); I33.0 Acute and subacute infective endocarditis; E87.1 Hypo-osmolality and hyponatremia; E87.8 Other disorders of electrolyte and fluid balance, not elsewhere classified; J45.901 Unspecified asthma with (acute) exacerbation; I27.2 Other secondary pulmonary hypertension; I07.1 Rheumatic tricuspid insufficiency; F10.239 Alcohol dependence with withdrawal, unspecified; F11.23 Opioid dependence with withdrawal; F14.10 Cocaine abuse, uncomplicated; D64.9 Anemia, unspecified; F41.1 Generalized anxiety disorder; Z59.0 Homelessness; Z79.82 Long term (current) use of aspirin; Z83.3 Family history of diabetes mellitus; Z87.19 Personal history of other diseases of the digestive system; F17.210 Nicotine dependence, cigarettes, uncomplicated; I44.4 Left anterior fascicular block